=== PATIENT | male | born 1955 | race Caucasian/White ===

== ENCOUNTER 2022-06-05 09:49 | Inpatient (IN) ==
--- NOTE | 2022-05-12 10:15 | PAT Medication Instructions ---
Medication Instructions Date of Service May 12, 2022 Home Medications dabigatran etexilate 150 mg capsule (Pradaxa) 150 mg PO BID folic acid 1 mg tablet 1 mg PO QPM furosemide 20 mg tablet 20 mg PO QAM hydroxychloroquine 400 mg tablet 400 mg PO QPM losartan 100 mg tablet 100 mg PO QPM prednisone 5 mg tablet 5 mg PO QPM tamsulosin 0.4 mg capsule 0.4 mg PO QAM ASK your prescriber and surgeon dabigatran etexilate 150 mg capsule (Pradaxa) 150 mg PO BID hydroxychloroquine 400 mg tablet 400 mg PO QPM DO NOT take the morning of surgery furosemide 20 mg tablet 20 mg PO QAM Take morning of surgery With a small sip of water, OTHERWISE NOTHING TO EAT OR DRINK AFTER MIDNIGHT: tamsulosin 0.4 mg capsule 0.4 mg PO QAM Take evening before surgery folic acid 1 mg tablet 1 mg PO QPM losartan 100 mg tablet 100 mg PO QPM prednisone 5 mg tablet 5 mg PO QPM Other Notes If you have any questions please call us at [phone] or [phone] or [phone] or [phone]
--- NOTE | 2022-05-19 11:45 | Anesthesiology Consultation ---
Date of Service May 19, 2022 Assessment & Plan (1) Encounter for pre-operative examination: - awaiting upcoming PCP clearance 05/24/22 [facility]. Chart Review Chart Review: Pending: Refer to Additional Notes / Consult section and Patient seen in Pre Admission Testing Teaching & Discussion Pre-Anesthesia Teaching/Discussion Notes: Instructed NPO after midnight before surgery, except medications with 15 cc of water. Medication instructions provided according to the PAT guidelines. History Surgery Operation Date: 06/05/22 07:45 Proposed Procedures p L4-L5 Decompression and Fusion, Spinal Cord Monitoring - Armond Mosqurea DO Height/Weight Height: 5 ft 8 in Weight: 94.3 kg Allergies Allergy/AdvReac Type Severity Reaction Status Date / Time rosuvastatin [From Crestor] Allergy Mild Muscle Pain Verified 05/12/22 08:00 cephalexin [From Keflex] AdvReac Intermediate Diarrhea Verified 05/12/22 08:00 Medications Home Medications Medication Instructions Recorded Confirmed Last Taken dabigatran etexilate 150 mg 150 mg PO BID 05/12/22 05/12/22 Unknown capsule (Pradaxa) folic acid 1 mg tablet 1 mg PO QPM 05/12/22 05/12/22 Unknown furosemide 20 mg tablet 20 mg PO QAM 05/12/22 05/12/22 Unknown hydroxychloroquine 400 mg tablet 400 mg PO QPM 05/12/22 05/12/22 Unknown losartan 100 mg tablet 100 mg PO QPM 05/12/22 05/12/22 Unknown prednisone 5 mg tablet 5 mg PO QPM 05/12/22 05/12/22 Unknown tamsulosin 0.4 mg capsule 0.4 mg PO QAM 05/12/22 05/12/22 Unknown Past Medical History Medical History (Updated 05/19/22 @ 11:51 by Danae Bonilla PA-C) History of COVID-19 08/2021- fever, aches, no hospitalization, no current issues HTN (hypertension) controlled, stable per pt; white coat hypertension Hx of deep venous thrombosis x 5-- right and left calf, last one ~6 yrs ago; reason for pradaxa; had testing, no known cause Polyneuropathy Rheumatoid arthritis Witnessed apneic spells snoring and witnessed apneas Patient denies h/o stroke, seizures, heart attack, heart failure, DM, or blood transfusions. Exercise / Class Metabolic Activity II 4-5 Yardwork/Stairs/Walk up hill (denies chest discomfort or shortness of breath with 1 FOS) Past Family History Family History Other No family history of adverse response to anesthesia Past Surgical History Surgical History Hx of cholecystectomy Hx of left cataract extraction Hx of umbilical hernia repair 04/12/2022 Past Anesthesia History No Hx of Anesthesia Complications and No Family Hx of Anesthesia Complications History of PONV No Hx of PONV and No Hx of Motion Sickness Social History Smoking Status: Never smoker Do You Dip or Chew Tobacco: No Hx Alcohol Use: Yes Alcohol type: beer alcohol intake frequency: a few times a week Hx Substance Use: No substance use type: does not use Review of Systems Snoring and witnessed apneas, denies sleep study. Patient denies chest pain, shortness of breath, dyspnea on exertion, reflux, fever, chills, cough, wheezing, or palpitations. Physical Exam Vital Signs Vitals BP 148/80 P 62 TEMP 97.9 SP02 97% on RA RESP 18 Physical Full cervical extension range of motion without pain TMD 3.5 finger breadths Mallampati Score 2 Dentition: intact, denies chipped or loose teeth, caps/crowns, implants or bridges Lungs: normal respiratory effort. Clear throughout to auscultation, no adventitious breath sounds Cardiac: regular rate and rhythm, no murmurs noted Carotid arteries: negative bruit bilat Lab Results Anesthesia Preop Results Results Anesthesia Widget: WBC 6.24 K/ul (4.8-10.8) 05/19/22 Hgb 15.3 g/dl (14.0-18.0) 05/19/22 Hct 44.5 % (42.0-52.0) 05/19/22 Plt 202 K/uL (130-400) 05/19/22 Na 137 mmol/L (136-145) 05/19/22 K 4.0 mmol/L (3.5-5.1) 05/19/22 Cl 106 mmol/L (98-107) 05/19/22 CO2 24 mmol/L (21-32) 05/19/22 BUN 23 mg/dl (6-23) 05/19/22 Creat 1.16 mg/dl (0.6-1.4) 05/19/22 Glucose Level 80 mg/dl (70-99(Fasting)) 05/19/22 PT 12.3 Seconds (9.0-12.0) H 05/19/22 PTT 41.9 Seconds (21.0-31.0) H 05/19/22 INR 1.2 (0.9-1.1) H 05/19/22 Urine Color Yellow 05/19/22 Urine Appearance Clear (Clear) 05/19/22 Urine pH 5.0 (4.5-7.5) 05/19/22 Urine Specific [place] 1.018 (1.000-1.030) 05/19/22 Urine Protein Negative (Negative) 05/19/22 Urine Glucose (UA) Negative (Negative) 05/19/22 Urine Ketones Trace (Negative) H 05/19/22 Urine Blood Negative (Negative) 05/19/22 Urine Nitrite Negative (Negative) 05/19/22 Urine Bilirubin Negative (Negative) 05/19/22 Urine Urobilinogen Negative (Negative) 05/19/22 Urine Leukocyte Esterase 1+ (Negative) H 05/19/22 Urine WBC (Auto) 1-5 /hpf (0-5) 05/19/22 Urine RBC (Auto) 0-4 /hpf (0-4) 05/19/22 Urine Hyaline Casts (Auto) 1-5 /lpf (0-5) 05/19/22 Urine Epithelial Cells (Auto) 5-10 /lpf (0-5) H 05/19/22 Urine Bacteria (Auto) Negative (Negative) 05/19/22 Blood Type A Positive 05/19/22 Antibody Screen NEGATIVE 05/19/22 Testing Electrocardiogram Date: 05/19/22 Sinus bradycardia, rate 52 bpm Chest X-Ray Date: 05/19/22 No prior studies are available for comparison at the time of dictation. The cardiomediastinal silhouette is unremarkable. The lungs and pleural spaces are clear noting minimal bibasilar atelectasis. There is no pneumothorax. The bony thorax appears intact. Degenerative change is seen in the shoulders. Cholecys tectomy clips are noted in the right upper quadrant. IMPRESSION: No active disease in the chest. Stress Test Date: 05/18/21 Pharmacologic MPHR 85% Negative for inducible ischemia EF 50-54% Mild aortic valve regurgitation Mild mitral regurgitation Mild tricuspid regurgitation Cervical Spine Date: 05/19/22 x-ray The skeletal structures appear osteopenic. There is no radiographic evidence of fracture or subluxation on these lateral views. Vertebral body height and alignment are maintained. There is no bony subluxation on the flexion/extension views. Anterior osteophytes are seen throughout. The atlantodental articulation appears maintained noting productive degenerative change. The spinolaminar line is preserved. The spinous processes appear intact. There is severe disc space narrowing at C6-C7 and C7-T1. Moderate disc space narrowing is noted at C5-C6. Small posterior disc osteophyte complexes are noted in the lower cervical region. The prevertebral soft tissues are within normal limits. IMPRESSION: 1. No acute bony abnormality is seen involving the cervical spine on these lateral projections. 2. No bony subluxation is seen on the flexion/extension views. COVID-19 Risk Screen Screening Information COVID-19 Screen Date: 05/19/22 Exposure 21 Days Family/Household +COVID Last 21 Days: No Exposure 10 Days Any COVID Exposure Last 10 Days: No Symptoms Last 10 Days Experienced COVID Sx Last 10 Days: No + COVID 0-90 Days COVID + in Last 0-90 Days: No
[~2022-06-05 09:49] MED LIST: ACETAMINOPHEN 500 MG TAB PO SCH; CeleBREX 200 MG CAP PO SCH; DEXAMETHASONE SOD INJ 4 MG/ML VIAL ONE; GABAPENTIN 300 MG CAP PO SCH; LIDOCAINE 2% MPF LOCAL 5 ML VIAL ONE; LR 15ML/HR IV SCH; MIDAZOLAM HCL 1 MG/ML 2ML VIAL ONE; PROPOFOL IV EMULSION 10 MG/ML 20 ML VIAL IV ONE; ROCURONIUM BROMIDE 10 MG/ML 5 ML VIAL IV ONE; ceFAZolin 2000MG 2,000 MG/15 ML SYR IV SCH; fentaNYL citrate PF 100 MCG/2 ML VIAL ONE
[2022-06-05] MEDS ORDERED: LABETALOL HCL IV 5 MG/ML 20ML IV PRN (10:48)
[2022-06-05] MEDS ORDERED: ePHEDrine sulfate 50 MG/ML AMP IV PRN (10:48)
[2022-06-05] MEDS ORDERED: ATROPINE SULFATE 0.1 MG/ML 10ML SYR IV PRN (10:48)
[2022-06-05] MEDS ORDERED: PROMETHAZINE HCL 12.5 MG in SODIUM CHLORIDE 0.9% 50 ML IV PRN ×2 (10:48→16:31)
[2022-06-05] MEDS ORDERED: NALOXONE HCL 0.4 MG/1 ML VIAL/CARP IV PRN ×2 (10:48→16:31)
[2022-06-05] MEDS ORDERED: ONDANSETRON INJ 2 MG/ML 2 ML VIAL IV PRN ×2 (10:48→16:31)
[2022-06-05] MEDS ORDERED: FLUMAZENIL 0.1 MG/1 ML 10 ML VIAL IV PRN (10:48)
--- NOTE | 2022-06-05 12:25 | History & Physical Bridge Note ---
Date of Service June 05, 2022 History & Physical Bridge Note I have examined the patient, reviewed the History & Physical and in the interval since the performance of the History & Physical I have noted the following changes of clinical significance: no changes noted
--- NOTE | 2022-06-05 12:27 | History & Physical Report ---
Date of Service June 05, 2022 Assessment & Plan (1) Lumbar disc herniation with radiculopathy: Plan: L4-L5 decompression and fusion History of Present Illness Chief Complaint: Back and leg pain Primary Care Provider: NO PCP This is a 66-year-old male who presents with chronic persistent back and leg pain after failing course of nonoperative care is here for surgical intervention. Allergies Allergy/AdvReac Type Severity Reaction Status Date / Time rosuvastatin [From Crestor] Allergy Mild Muscle Pain Verified 05/12/22 08:00 cephalexin [From Keflex] AdvReac Intermediate Diarrhea Verified 05/12/22 08:00 Home Medications Medication Instructions Recorded Confirmed Type dabigatran etexilate 150 mg 150 mg PO BID 05/12/22 06/05/22 History capsule (Pradaxa) folic acid 1 mg tablet 1 mg PO QPM 05/12/22 06/05/22 History furosemide 20 mg tablet 20 mg PO QAM 05/12/22 06/05/22 History hydroxychloroquine 400 mg tablet 400 mg PO QPM 05/12/22 06/05/22 History losartan 100 mg tablet 100 mg PO QPM 05/12/22 06/05/22 History prednisone 5 mg tablet 5 mg PO QPM 05/12/22 06/05/22 History tamsulosin 0.4 mg capsule (Flomax) 0.4 mg PO QAM 05/12/22 06/05/22 History Past Med/Surg History Medical History (Updated 06/05/22 @ 12:26 by Armond Mosquera DO) History of COVID-19 08/2021- fever, aches, no hospitalization, no current issues HTN (hypertension) controlled, stable per pt; white coat hypertension Hx of deep venous thrombosis x 5-- right and left calf, last one ~6 yrs ago; reason for pradaxa; had testing, no known cause Polyneuropathy Rheumatoid arthritis Witnessed apneic spells snoring and witnessed apneas Surgical History Hx of cholecystectomy Hx of left cataract extraction Hx of umbilical hernia repair 04/12/2022 Family History Other No family history of adverse response to anesthesia Social History Smoking Status: Never smoker Second Hand Exposure: No; Do You Dip or Chew Tobacco: No; Tobacco Cessation Education Requested by Patient: No Hx Alcohol Use: Yes Alcohol type: beer Hx Substance Use: No Preferred Language: Sinhala Communication Ability: Effective Bottom Painter Required: No Beliefs That Will Affect Care: None Current Living Situation: Spouse Feels Safe at Home: Yes Safety Concerns: Feels Safe At This Time Assistive Devices: Glasses Physical Exam Physical Exam: Patient is alert and oriented Heart regular rhythm Lungs clear Results & Data Results & Data Vital Signs (Past 12 Hours) Vital Signs Temp Pulse Resp BP Pulse Ox O2 Del Method 06/05/22 10:25 36.5 C 56 L 20 168/87 H 97 Room Air
[2022-06-05] MEDS ORDERED: ceFAZolin 330 MG/ML 1 GM VIAL ONE (12:42)
[2022-06-05] MEDS ORDERED: BUPIVACAINE/EPINEPHRINE 0.25% 1:200,000 30 ML VIAL ONE (12:42)
[2022-06-05] MEDS ORDERED: ONDANSETRON INJ 2 MG/ML 2 ML VIAL ONE (13:41)
[2022-06-05] MEDS ORDERED: ePHEDrine sulfate 50 MG/ML SYR ONE (13:41)
[2022-06-05] MEDS ORDERED: FLOSEAL HEMOSTATIC MATRIX 10ML TOP ONE (14:16)
--- NOTE | 2022-06-05 14:20 | Operative Report ---
Post Operative Report Pre & Post Diagnosis Operation Date: 06/05/22 11:25 Pre-Op Diagnosis: Lumbar spinal stenosis with radiculopathy Post-Op Diagnosis: Same I identified the patient and participated in the time-out.: Yes Procedure Operation Date: 06/05/22 11:25 Actual Procedures #1 lumbar decompression bilaterally facetectomies and foraminotomies L3-L4 L4- L5. #2 posterior spinal fusion L4-L5. #3 placed posterior instrumentation L4- L5. #4 interbody fusion L4-L5. #5 placement of Spira 10 x 26 mm cage and L4- L5. #6 placement locally harvested morselized autograft in the posterior gutters. #7 placement of I factor bone of the talus in the interbody space and posterior lateral gutters. Surgeon Armond Mosquera, DO Wage Conciliator Savannah Nevarez Estimated Blood Loss 150 Findings See Below The patient is 5 foot 8 weighing over 94 kg with a BMI in excess of 31. Patient's body habitus did contribute to significant technical difficulty required deepest retractors longer instruments in order to perform his procedure. This at least 50% increased operative time. Specimens None Indications This is a 58-year-old male who presents above-mentioned diagnosis after failing course of nonoperative care is here for surgical invention. Description of Procedure Patient was met with identified informed consent obtained. Patient was then taken to the operative suite underwent intubation placed in a prone position on the [place] table top [place] frame. All bony prominences well-padded eyes inspected to ensure no external pressure placed on them. Patient was then prepped and draped normal sterile fashion. Sharp dissection with assistance of Bovie Cardizem performed down to and exposing the lamina transverse processes of L4 and L5. From caudal to cephalad fashion complete laminectomy of L4 partial laminectomy L3 was performed including bilateral facetectomies and foraminotomies addressing severe spinal stenosis particular on the right L4 foramen. Pedicle screws were then placed in L4 and L5 bilaterally with assistance of fluoroscopy and appropriate sized yuriy placed. By way of transforaminal approach and right complete discectomy was performed endplates curetted to subcortical bleeding bone and a 10 x 26 mm Spira cage with I factor tapped position. The rods were then locked in final position bilaterally. Transverse processes of L4 and L5 burred to subcortically bone. I factor bone of the test and locally harvested morselized autograft was placed in the posterior gutters. 15 round HIRAL drain inserted. The incision was then closed with 1 Vicryl the fascia 2-0 Vicryl subcutaneously and 4 Monocryl for final skin closure. Steri-Strips and sterile dressing placed. Patient awakened taken to PACU in stable condition. Please note spinal cord monitoring was utilized at the procedure no changes noted. Lastly Savannah Nevarez was present at the entire surgery and with the patient positioning complex portions of the surgery and final skin closure. I attest to the content of the Intraoperative Record and any orders documented therein. Any exceptions are noted below.
--- NOTE | 2022-06-05 14:25 | Fluoroscopy Report ---
FL lumbar spine 2-3V CLINICAL HISTORY: L4-L5 DECOMP/FUSION COMPARISON STUDY: None. FLUOROSCOPY TIME: 16 seconds FLUOROSCOPY IMAGES: 2 Ka,r: 14.5 mGy FINDINGS: Posterior decompression and fusion at L4-5 with pedicle screws and rods. The hardware appea rs intact. The disc spacers in place. IMPRESSION: Fluoroscopic assistance as above. ACT 112: Negative or not required by law. Electronically signed by: Ghulam Garcia M.D. 06/05/2022 2:24 PM
[2022-06-05] MEDS ORDERED: SUGAMMADEX SODIUM 200 MG/2 ML VIAL IV ONE (14:26)
[2022-06-05] MEDS: fentaNYL citrate PF 100 MCG/2 ML VIAL IV PRN ×4 (14:37→14:55)
[2022-06-05] MEDS: HYDROmorphone INJ 1 MG/ML SYRINGE IV PRN ×2 (15:00→15:05)
--- NOTE | 2022-06-05 15:28 | Anesthesiology Progress Note ---
Date of Service June 05, 2022 Anesthesia Post Procedure Vital Signs Vital Signs: Temp Pulse Pulse Resp BP Pulse Ox O2 Del Method 06/05/22 15:20 36.4 C L 59 L 15 138/76 96 Nasal Cannula 06/05/22 15:10 64 12 134/77 96 Nasal Cannula 06/05/22 15:00 58 L 12 142/83 H 98 Oxymask 06/05/22 14:50 69 12 157/83 H 98 Oxymask 06/05/22 14:40 67 16 145/82 H 100 Oxymask 06/05/22 14:34 36.0 C L 64 22 138/82 100 Oxymask 06/05/22 10:25 36.5 C 56 L 20 168/87 H 97 Room Air O2 Flow Rate 06/05/22 15:20 2 06/05/22 15:10 2 06/05/22 15:00 5 06/05/22 14:50 5 06/05/22 14:40 9 06/05/22 14:34 9 06/05/22 10:25 Pain Intensity Right Leg: Pain Intensity: 3 Back: Pain Intensity: 3 Transfer of Care Handoff Completed per policy Notes Mental Status: alert / awake / arousable Patient Amnestic to Procedure: Yes Nausea / Vomiting: adequately controlled Pain: adequately controlled Airway Patency, RR, SpO2: stable & adequate BP & HR: stable & adequate Hydration State: stable & adequate Anesthetic Complications: no major complications apparent
[2022-06-05] MEDS ORDERED: bisacodyL 10 MG SUPP PR PRN (16:31)
[2022-06-05] MEDS ORDERED: ACETAMINOPHEN 500 MG TAB PO PRN (16:31)
[2022-06-05] MEDS ORDERED: MAGNESIUM HYDROXIDE SUSP 30 ML UDC PO PRN (16:31)
[2022-06-05] MEDS ORDERED: DO NOT ADMINISTER PNEUMOCOCCAL VACCINE PRN (16:31)
[2022-06-05] MEDS ORDERED: oxyCODONE HCL IR 5 MG TAB (IMMEDIATE RELEASE) PO PRN (16:31)
[2022-06-05] MEDS ORDERED: FAMOTIDINE 20 MG TAB PO PRN (16:31)
[2022-06-05] MEDS ORDERED: LORazepam 0.5 MG TAB PO PRN (16:31)
[2022-06-05] MEDS ORDERED: ONDANSETRON 4 MG OD TAB PO PRN (16:31)
[2022-06-05] MEDS ORDERED: METOCLOPRAMIDE HCL INJ 5 MG/ML 2 ML VIAL IV PRN (16:31)
[2022-06-05] MEDS ORDERED: HYDROmorphone INJ 0.5 MG/0.5 ML SYR IV PRN (16:31)
[2022-06-05] MEDS ORDERED: HYDROmorphone INJ 1 MG/ML SYRINGE IV PRN (16:31)
[2022-06-05] MEDS ORDERED: diphenhydrAMINE Capsule 25 MG CAP PO PRN (16:31)
[2022-06-05] MEDS ORDERED: ALUMINUM/MAGNESIUM SUSP 30 ML UDC PO PRN (16:31)
[2022-06-05] MEDS ORDERED: DO NOT ADMINISTER FLU VACCINE PRN (16:31)
[2022-06-05] MEDS ORDERED: hydrOXYzine HCl 25 MG TAB PO PRN (16:31)
[2022-06-05] MEDS ORDERED: LORazepam 2 MG/1 ML VIAL IV PRN (16:31)
[2022-06-05] MEDS ORDERED: ACETAMINOPHEN 1,000 MG/100 ML VIAL IV PRN (16:31)
[2022-06-05] MEDS ORDERED: SOD PHOSPHATE/SOD BIPHOSPHATE ENEMA 132 ML BTL PR PRN (16:31)
--- NOTE | 2022-06-05 17:42 | Hospitalist Consultation ---
Date of Consultation June 05, 2022 Assessment & Plan (1) Lumbar disc herniation with radiculopathy: POD #0 - L4-L5 Decompression and Fusion - Pain control, PT/OT per primary service - Due to pt's history of recurrent DVT, would recommend resuming anticoagulation as soon as okay with primary team - encourage OOB as able. - Labs in AM - EBL 150 ml - Incentive spirometry (2) Rheumatoid arthritis: Resume prednisone once finishes course of dexamethasone Continue hydroxychloroquine Resume methotrexate and Orencia per discussions with rheumatology (3) Hx of deep venous thrombosis: (4) Chronic anticoagulation: (5) HTN (hypertension): BP currently acceptable - continue to monitor, resume home meds (6) Dyslipidemia: Plan Pt seen and reviewed with collaborating physician, Dr. Mathews. Plan of care discussed and as outlined above. Thank you for this consultation. We will continue to follow the patient with you. A member of the [facility] Hospitalist Team is available 02/10 via [employer]. Please don't hesitate to reach out with questions. Kathy Cadet PA-C Supervising Physician Co-Signing Physician Notes The patient tomorrow History of Present Illness Reason for Consultation: Post-operative Medical Management Requesting Physician: Dr. Armond Mosquera Attending Physician: Armond Mosquera, DO History of Present Illness This is a 66 y/o male with seronegative RA, recurrent DVT x 5, chronic AC on Pradaxa (apparently developed DVT on both warfarin and Xarelto per outpatient records), HTN, dyslipidemia, and polyneuropathy who underwent L4-L5 decompression and fusion today by Dr. Mosquera. We have been consulted to assist with post-operative medical management. Pt reports several years of lower back pain for which he tried multiple conservative options including aqua therapy, manager urgent care, and multiple injections. However, the pain progressed to the point of interfering with his daily activities so he decided to pursue surgical intervention. Currently, he is sitting OOB in chair and reports minimal pain when he is at rest. Had some difficulty transferring to the chair. Otherwise, he is feeling well - denies chest pain, palpitations, shortness of breath, nausea, vomiting, sore throat, dysphagia. Holly catheter was removed before pt came to the floor. Pt has a history of multiple DVTs of unknown cause so he is worried about getting back on the Pradaxa as soon as possible. Allergies Allergy/AdvReac Type Severity Reaction Status Date / Time rosuvastatin [From Crestor] Allergy Mild Muscle Pain Verified 05/12/22 08:00 cephalexin [From Keflex] AdvReac Intermediate Diarrhea Verified 05/12/22 08:00 Home Medications Medication Instructions Recorded Confirmed Type dabigatran etexilate 150 mg 150 mg PO BID 05/12/22 06/05/22 History capsule (Pradaxa) folic acid 1 mg tablet 1 mg PO QPM 05/12/22 06/05/22 History furosemide 20 mg tablet 20 mg PO QAM 05/12/22 06/05/22 History hydroxychloroquine 400 mg tablet 400 mg PO QPM 05/12/22 06/05/22 History losartan 100 mg tablet 100 mg PO QPM 05/12/22 06/05/22 History prednisone 5 mg tablet 5 mg PO QPM 05/12/22 06/05/22 History tamsulosin 0.4 mg capsule (Flomax) 0.4 mg PO QAM 05/12/22 06/05/22 History abatacept (with maltose) 250 mg See Rx Instructions .Route .COMPLEX 06/05/22 06/05/22 History intravenous solution (Orencia (with maltose)) methotrexate sodium 2.5 mg tablet 25 mg PO WK 06/05/22 06/05/22 History Patient History Medical History (Updated 06/05/22 @ 18:52 by Priyanka Cadet PA-C) Choledocholithiasis Chronic anticoagulation DDD (degenerative disc disease), lumbar Dyslipidemia History of COVID-19 08/2021- fever, aches, no hospitalization, no current issues HTN (hypertension) controlled, stable per pt; white coat hypertension Hx of deep venous thrombosis x 5-- right and left calf, last one ~6 yrs ago; reason for pradaxa; had testing, no known cause Polyneuropathy Rheumatoid arthritis Witnessed apneic spells snoring and witnessed apneas Surgical History History of ERCP Hx of cholecystectomy Hx of left cataract extraction Hx of umbilical hernia repair 04/12/2022 Family History Other Diabetes Heart disease No family history of adverse response to anesthesia Pulmonary embolism Stroke Social History Smoking Status: Never smoker Second Hand Exposure: No; Do You Dip or Chew Tobacco: No; Tobacco Cessation Education Requested by Patient: No Hx Alcohol Use: Yes Alcohol type: beer Hx Substance Use: No Preferred Language: Kittitian Communication Ability: Effective Progressive Care Nurse Required: No Beliefs That Will Affect Care: None Current Living Situation: Spouse Feels Safe at Home: Yes Safety Concerns: Feels Safe At This Time Assistive Devices: Glasses Review of Systems Review of Systems: All systems reviewed & are unremarkable except as noted in HPI & below Constitutional: no fever, no chills and no sweats Eyes: no diplopia Ear, Nose, Mouth, Throat: no sore throat and no dysphagia Respiratory: no cough and no dyspnea Cardiovascular: no chest pain and no palpitations Gastrointestinal: no abdominal pain, no nausea and no vomiting Musculoskeletal: as per Subjective / HPI Integumentary: no rash Neurologic: no dizziness and no headache(s) Psychiatric: no depression and no anxiety Physical Exam Constitutional: well developed and well nourished; no acute distress Eyes: + anicteric sclerae ENMT: external ear and nose normal, oropharynx normal Neck: trachea midline Respiratory: no respiratory distress and no labored breathing Auscultation: lungs clear to auscultation bilaterally; no rales, no rhonchi and no wheezes Cardiovascular: Rate/Rhythm: regular rate and regular rhythm Vessels: radial pulses present Extremities: no pedal edema Gastrointestinal (Abdomen): Inspection/Auscultation: normal bowel sounds; abd omen not distended Percussion/Palpation: abdomen soft Musculoskeletal: Head/Neck/Chest: normocephalic, head atraumatic and neck supple Skin: no jaundice Neurologic: moves all extremities; no focal motor deficits and not confused Psychiatric: A+Ox3, euthymic affect Results & Data Results & Data Vital Signs (Past 12 Hours) Vital Signs Temp Pulse Pulse Pulse Resp BP Pulse Ox 06/05/22 17:36 36.3 C L 60 16 128/75 96 06/05/22 16:43 36.4 C L 50 L 18 156/96 H 95 06/05/22 16:15 35.7 C L 51 L 16 159/91 H 98 06/05/22 15:54 36.3 C L 50 L 16 162/90 H 98 06/05/22 15:30 55 L 12 136/81 99 06/05/22 15:20 36.4 C L 59 L 15 138/76 96 06/05/22 15:10 64 12 134/77 96 06/05/22 15:00 58 L 12 142/83 H 98 06/05/22 14:50 69 12 157/83 H 98 06/05/22 14:40 67 16 145/82 H 100 06/05/22 14:34 36.0 C L 64 22 138/82 100 06/05/22 10:25 36.5 C 56 L 20 168/87 H 97 O2 Del Method O2 Flow Rate 06/05/22 17:36 Nasal Cannula 2 06/05/22 16:43 Nasal Cannula 2 06/05/22 16:15 Nasal Cannula 2 06/05/22 15:54 Nasal Cannula 2 06/05/22 15:30 Nasal Cannula 2 06/05/22 15:20 Nasal Cannula 2 06/05/22 15:10 Nasal Cannula 2 06/05/22 15:00 Oxymask 5 06/05/22 14:50 Oxymask 5 06/05/22 14:40 Oxymask 9 06/05/22 14:34 Oxymask 9 06/05/22 10:25 Room Air Laboratory Results 06/05/22 Unknown SARS-CoV-2, RNA, NAAT NEGATIVE Medications Administered Lactated Ringer's (Lr) 1,000 mls @ 100 mls/hr IV .Q10H DEBRA Stop: 07/05/22 16:30 Last Admin: 06/05/22 18:30 Dose: 100 mls/hr Documented By: [facility] Discontinued Medications Acetaminophen (Acetaminophen 500 Mg Tab) 1,000 mg PO PREOP DEBRA Stop: 06/05/22 18:00 Last Admin: 06/05/22 10:55 Dose: 1,000 mg Documented By: QUIRINO Bupivacaine HCl/Epinephrine Bitart (Bupivacaine/Epinephrine 0.25% 1:200,000 30 Ml Vial) Confirm Administered Dose 30 ml .ROUTE .STK-MED ONE Stop: 06/05/22 12:43 Last Admin: 06/05/22 13:22 Dose: 20 ml Documented By: [facility] Cefazolin Sodium (Cefazolin 330 Mg/Ml 1 Gm Vial) Confirm Administered Dose 990 mg .ROUTE .STK-MED ONE Stop: 06/05/22 12:43 Last Admin: 06/05/22 14:12 Dose: 950 mg Documented By: LAKEISHA Celecoxib (Celebrex 200 Mg Cap) 200 mg PO PREOP DEBRA Stop: 06/05/22 18:00 Last Admin: 06/05/22 10:55 Dose: 200 mg Documented By: QUIRINO Fentanyl Citrate (Fentanyl Citrate Pf 100 Mcg/2 Ml Vial) 25 mcg IV Q5M PRN PRN Reason: PACU Use Only-Pain Stop: 06/05/22 18:48 Last Admin: 06/05/22 14:55 Dose: 25 mcg Documented By: Admin: 06/05/22 14:50 Dose: 25 mcg Documented By: Admin: 06/05/22 14:45 Dose: 25 mcg Documented By: Admin: 06/05/22 14:37 Dose: 25 mcg Documented By: DAYSI Gabapentin (Gabapentin 300 Mg Cap) 300 mg PO PREOP DEBRA Stop: 06/05/22 18:00 Last Admin: 06/05/22 10:55 Dose: 300 mg Documented By: QUIRINO Hydromorphone HCl (Hydromorphone Inj 1 Mg/Ml Syringe) 0.25 mg IV Q5M PRN PRN Reason: PACU Use Only-Pain Stop: 06/05/22 18:48 Last Admin: 06/05/22 15:05 Dose: 0.25 mg Documented By: Admin: 06/05/22 15:00 Dose: 0.25 mg Documented By: DC Cefazolin Sodium (Ancef 2000mg) 2,000 mg in 15 mls @ 3.75 mls/min IV PREOP DEBRA; Protocol Stop: 06/05/22 18:00 Last Admin: 06/05/22 12:53 Dose: 3.75 mls/min Documented By: [id number] Lactated Ringer's (Lr) 1,000 mls @ 15 mls/hr IV .Q24H DEBRA Stop: 06/05/22 18:00 Last Infusion: 06/05/22 12:53 Dose: 0 mls/hr Documented By: [facility] Admin: 06/05/22 10:38 Dose: 15 mls/hr Documented By: QUIRINO Miscellaneous ( Floseal Hemostatic Matrix 10ml) 20 ml TOP ONCE ONE Stop: 06/05/22 14:17 Last Admin: 06/05/22 14:18 Dose: 15 ml Documented By: LAKEISHA
[2022-06-05] MEDS: LACTATED RINGER'S 1,000 ML IV SCH (18:30)
[2022-06-05] MEDS: HYDROXYCHLOROQUINE SULFATE 200 MG TAB PO SCH (19:51)
[2022-06-05] MEDS: LOSARTAN POTASSIUM 50 MG TAB PO SCH (19:51)
[2022-06-05] MEDS: DOCUSATE SODIUM/SENNA 50/8.6MG TAB PO SCH (19:51)
[2022-06-05] MEDS: ceFAZolin 2000MG 2,000 MG/15 ML SYR IV SCH (19:52)
[2022-06-05] MEDS: FOLIC ACID 1 MG TAB PO SCH (19:52)
[2022-06-06] MEDS: POLYETHYLENE (MIRALAX) 17 GM PACK PO SCH ×3 (05:26→17:53)
[2022-06-06] MEDS: ceFAZolin 2000MG 2,000 MG/15 ML SYR IV SCH (05:26)
[2022-06-06 07:42] LABS: Basophils # (auto) 0.01 K/uL (0-0.2); Basophils % (auto) 0.1 %; Eosinophils # (auto) 0.02 K/uL (0-0.50); Eosinophils % (auto) 0.2 %; Hematocrit (blood only) 38.8 % (42.0-52.0); Hemoglobin 13.1 g/dl (14.0-18.0); Immature Granulocytes # (auto) 0.04 K/uL (0.01-0.20); Immature Granulocytes % (auto) 0.4 %; Lymphocytes % (auto) 12.2 %; Mean Corpuscular Hemoglobin 31.3 pg (25.0-34.0); Mean Corpuscular Hgb Conc 33.8 g/dL (32.0-36.0); Mean Corpuscular Volume 92.8 fL (80.0-100.0); Mean Platelet Volume 10.3 fL (9.4-12.4); Monocytes # (auto) 0.72 K/uL (0.11-0.59); Monocytes % (auto) 7.3 %; Neutrophils # (auto) 7.85 K/uL (1.40-6.50); Neutrophils % (auto) 79.8 %; Platelet Count 172 K/uL (130-400); RDW Coefficient of Variation 12.3 % (11.5-14.5); RDW Standard Deviation 42.4 fL (36.4-46.3); Red Blood Count 4.18 M/uL (4.70-6.10); White Blood Count 9.84 K/ul (4.8-10.8)
[2022-06-06] MEDS: LACTATED RINGER'S 1,000 ML IV SCH (07:42)
[2022-06-06] MEDS: TAMSULOSIN HCL 0.4 MG CAP PO SCH (08:04)
[2022-06-06] MEDS: FUROSEMIDE 20 MG TAB PO SCH (08:04)
[2022-06-06] MEDS: dexAMETHasone 6 MG in SYRINGE 0 ML IV SCH (08:04)
[2022-06-06 08:19] LABS: BUN Creatinine Ratio 16.1 (10-20); Calcium 8.2 mg/dl (8.6-10.3); Creatinine Clr Calc Pharmacy 84.8 ml/min; Est GFR (African American) 97.4 ml/min; Est GFR (Non-African American) 84.1 ml/min; Potassium 4.2 mmol/L (3.5-5.1)
[2022-06-06] MEDS: traMADol HCL 50 MG TABLET PO PRN ×2 (09:37→20:02)
--- NOTE | 2022-06-06 09:43 | Orthopedic Progress Note ---
Date of Service June 06, 2022 Assessment & Plan (1) Lumbar disc herniation with radiculopathy: Plan: This time continue physical therapy monitor his HIRAL operatively discharge home in next day or so. Admission and Anticipated Discharge Date Admission Date: June 05, 2022 Subjective Patient's back pain is controlled leg pain markedly improved Physical Exam Physical Exam: Patient is in the chair at the bedside. Skin strength testing. Appears comfortable. Results & Data Vital Signs (Past 12 Hours) Vital Signs Temp Pulse Resp BP Pulse Ox O2 Del Method 06/06/22 07:35 36.4 C L 60 16 131/78 95 Room Air 06/06/22 02:55 36.3 C L 62 16 126/74 95 Room Air 06/05/22 22:02 36.4 C L 81 16 129/80 92 Room Air
--- NOTE | 2022-06-06 16:31 | Hospitalist Progress Note ---
Date of Service June 06, 2022 Assessment & Plan (1) Lumbar disc herniation with radiculopathy: Plan: S/P lumbar decompression, fusion surgery by Dr. Mosquera on 05/26/22 Postoperative blood loss anemia Pain control, activity, DVT prophylaxis per primary team Continue incentive spirometer No indication for blood transfusion Bowel regimen to prevent Constipation Continue PT OT Continue wound care (2) Rheumatoid arthritis: Plan: Resume prednisone once off IV dexamethasone Continue hydroxychloroquine Continue methotrexate and Orencia (3) Hx of deep venous thrombosis: Plan: Resume Pradaxa once cleared by orthopedic surgery (4) Chronic anticoagulation: (5) HTN (hypertension): Plan: Continue home medications Monitor (6) Dyslipidemia: Plan DVT Px: Disposition As per Primary Team Admission and Anticipated Discharge Date Admission Date: June 05, 2022 Subjective Patient is seen and examined at bedside Back pain at surgical site is controlled No BM today Denies chest pain, dyspnea, dizziness, nausea Family at bedside No other complaints Review of Systems Review of Systems: All systems reviewed & are unremarkable except as noted in Subjective Physical Exam Physical Exam: Physical Exam: Vitals signs as noted above General Appearance:Moderately built and nourished, no apparent distress Head: normocephalic, Atraumatic Eyes: normal inspection, EOMI Neck: supple, Trachea midline Respiratory/Chest: Normal breath sounds, CTA, No accessory muscle use Cardiovascular: S1, S2, No murmur Abdomen/GI:Soft, Non tender, Bowel sounds present Back:+Surgical site in dressing Extremities/Musculoskeletal:normal inspection, Chronic pedal edema Neurologic/Psych:AAOX3, grossly no focal neurological deficits Skin: normal color, warm Results & Data Results & Data Vital Signs (Past 12 Hours) Vital Signs Temp Pulse Pulse Resp BP BP Pulse Ox 06/06/22 15:54 36.7 C 67 18 118/70 94 06/06/22 11:20 37.2 C 71 16 131/78 95 06/06/22 07:35 36.4 C L 60 16 131/78 95 O2 Del Method 06/06/22 15:54 Room Air 06/06/22 11:20 Room Air 06/06/22 07:35 Room Air Laboratory Results Short CBC 06/06/22 Range/Units 07:20 WBC 9.84 (4.8-10.8) K/ul Hgb 13.1 L (14.0-18.0) g/dl Hct 38.8 L (42.0-52.0) % Plt Count 172 (130-400) K/uL BMP 06/06/22 07:20 Sodium 139 Potassium 4.2 Chloride 107 Carbon Dioxide 27 BUN 15 Creatinine 0.93 Glucose 134 H Calcium 8.2 L
[2022-06-06] MEDS: FOLIC ACID 1 MG TAB PO SCH (20:02)
[2022-06-06] MEDS: DOCUSATE SODIUM/SENNA 50/8.6MG TAB PO SCH (20:03)
[2022-06-06] MEDS: LOSARTAN POTASSIUM 50 MG TAB PO SCH (20:03)
[2022-06-06] MEDS: HYDROXYCHLOROQUINE SULFATE 200 MG TAB PO SCH (20:03)
[2022-06-07] MEDS: POLYETHYLENE (MIRALAX) 17 GM PACK PO SCH ×2 (00:45→05:50)
[2022-06-07] MEDS: traMADol HCL 50 MG TABLET PO PRN ×2 (06:25→12:13)
[2022-06-07 08:29] LABS: Hematocrit (blood only) 40.2 % (42.0-52.0); Hemoglobin 13.7 g/dl (14.0-18.0); Mean Corpuscular Hemoglobin 31.1 pg (25.0-34.0); Mean Corpuscular Hgb Conc 34.1 g/dL (32.0-36.0); Mean Corpuscular Volume 91.2 fL (80.0-100.0); Mean Platelet Volume 10.8 fL (9.4-12.4); Platelet Count 188 K/uL (130-400); RDW Coefficient of Variation 12.3 % (11.5-14.5); RDW Standard Deviation 41.1 fL (36.4-46.3); Red Blood Count 4.41 M/uL (4.70-6.10); White Blood Count 10.42 K/ul (4.8-10.8)
[2022-06-07] MEDS: FUROSEMIDE 20 MG TAB PO SCH (08:46)
[2022-06-07] MEDS: TAMSULOSIN HCL 0.4 MG CAP PO SCH (08:46)
[2022-06-07] MEDS: dexAMETHasone 6 MG in SYRINGE 0 ML IV SCH (08:47)
[2022-06-07 09:18] LABS: BUN Creatinine Ratio 15.3 (10-20); Calcium 8.5 mg/dl (8.6-10.3); Creatinine Clr Calc Pharmacy 71.1 ml/min; Est GFR (African American) 78.7 ml/min; Est GFR (Non-African American) 67.9 ml/min; Magnesium 1.8 mg/dl (1.7-2.4); Potassium 4.2 mmol/L (3.5-5.1)
--- NOTE | 2022-06-07 10:51 | Discharge Summary ---
Date of Service June 07, 2022 Admission HPI Per Admitting Provider This is a 66-year-old male who presents with chronic persistent back and leg pain after failing course of nonoperative care is here for surgical intervention. Principal Diagnosis Lumbar spinal stenosis with radiculopathy Discharge Data Allergies Allergy/AdvReac Type Severity Reaction Status Date / Time rosuvastatin [From Crestor] Allergy Mild Muscle Pain Verified 05/12/22 08:00 cephalexin [From Keflex] AdvReac Intermediate Diarrhea Verified 05/12/22 08:00 Consultations 06/05/22 16:31 Consult Hospitalist Routine Procedures Performed Operation Date: 06/05/22 11:25 Actual Procedures p L4-L5 Decompression and Fusion, Spinal Cord Monitoring(Not Applicable) - Armond Mosquera DO Ordered Studies 06/05/22 [place] lumbar spine 2-3V Routine Hospital Course (1) Lumbar disc herniation with radiculopathy: Patient underwent lumbar decompression and fusion tolerated so was taken to orthopedic floor postoperatively postop day #1 he was up and ambulating progress postop day #2. Leg pain markedly improved. Excellent strength testing. HIRAL drain decreasing probably. Socially discharged home. Discharge orders instructions found in chart for further review. Total Time Total Time Spent Total Time Spent (In Minutes): 20 minutes Discharge Plan Discharge Items Patient Disposition: Home - Self-Care Reason For Visit: Spinal Stenosis, Lumbar Region without Neurogenic Discharge Diagnosis: Lumbar spinal stenosis with neurogenic claudication and radiculopathy Activity: As commented below Non-emergency contact: Primary Care Provider Call non-emergency contact if: you have any medication questions Follow-up/Referrals: PCP,NO [Primary Care Provider] - Diet: Regular Addtl Attending Provider Instructions: ACTIVITY RECOMMENDATIONS: SELF CARE INSTRUCTIONS AFTER THORACIC/LUMBAR FUSIONS 1. You may walk to your tolerance. It is good exercise for your legs and back. Expect some back and intermittent leg aches and pains. 2. You may perform "counter-top" level activities (make a sandwich, marcin with a project, etc.). 3. No bending or lifting of more than 10 pounds or back twisting of any nature (roll like a log when turning in bed). 4. You may ride in a car for 20-30 minutes at a time. No driving until after your first visit with your doctor. 5. Frequent changes of position and restricting sitting to 30 minutes at a time will help limit the amount of back spasms and stiffness you may experience. 6. You may discontinue the use of ambulatory aids (cane, crutches, etc.) once your strength and confidence allow. 7. You may general handling supervisor the shower and let water strike your incision when you arrive home at least once daily. Do not take a tub bath, sit in a hot tub or go into a swimming pool until after your first recheck in the office. SPECIAL CARE INSTRUCTIONS: VERY IMPORTANT TO READ AND REVIEW A. Your surgical incision has been closed with a cosmetic suture under the skin that will dissolve in about 6 weeks. In 14 days, you can use a pair of clean scissors and cut the suture that is left outside of the skin at the ends of your incision. 1. The small skin tapes can be removed 7 days after surgery if they have not fallen off by that point. 2. You may keep the wound open to air as much as possible to promote healing after post-op day number 5 unless told otherwise by your doctor. 3. If you think the wound looks like it is becoming infected (redness or worsening drainage) and/or you are experiencing fever, chill or worsening back pain and muscle spasms, contact the office so that we may evaluate you as soon as possible. B. Complications are uncommon, but please contact us if you have any signs or symptoms of: 1. wound infection (fever higher than 102.5 degrees F, redness, separation of wound, drainage, or increasing pain from the incision) 2. blood clots in legs (pain, swelling, redness and warmth in legs) 3. urinary tract infection (fever higher than 102.5 degrees F, burning upon urination or increased frequency of urination) 4. nerve problems (inability to walk on your toes or heels, numbness, loss of bowel or bladder control) 5. any other symptoms that concern you C. Please call the office at if you have any concerns or questions about your operation or recovery. D. No smoking! Smoking drastically decreases the chance of a solid fusion. E. Do not take any anti-inflammatory medications (Indocin, Advil, Motrin, Aspirin, Naprosyn, etc.) as these may inhibit the chance of a solid fusion. Tylenol is okay to take for pain. MANAGING PAIN AFTER SPINAL SURGERY 1. Narcotic medication is intended for short-term use and will be provided for surgical pain. Surgical pain usually lasts for a period of 4-6 weeks. Narcotic medication includes Percocet, Vicodin, Darvocet, Tylenol #3 or Lortab. 2. Longer-term pain is more appropriately treated with non-narcotic medication such as Tylenol ES. 3. Muscle spasm is not appropriately treated with narcotics. Muscle relaxers such as Soma, Flexeril or Skelaxin can be used along with Tylenol ES. 4. Remember that we all live with some "aches and pains". This is not unusual or uncommon after an injury or as we get older. a. Back pain is expected and may include muscle spasms for 4 to 6 weeks after surgery. The pain should gradually improve. If the pain worsens for no apparent reason, please contact the office. b. Intermittent leg pain may also be experienced and should not be concerned about unless it worsens for no apparent reason. If so, please contact the office. 5. We will provide appropriate medication within the normal guidelines of their prescribed use. We will also be very cautious and aware of potential abuse and extended duration of patients' medication needs. a. Pain medications are for your comfort and to assist with sleep and rest so that the tissue can heal. They are not provided in order to return to normal activity and should not be used through the day. To do so or worsening pain at night can result from ongoing tissue damage and development of tolerance to the prescribed medicine. 6. Please allow 2-3 days to process refills. Prescriptions will not be mailed but must be picked up at the office. FOLLOW UP VISIT: Keep your scheduled follow-up appointment. Any questions, please call the office at . Pending Studies at Discharge: No Stand-Alone Forms: [facility], Smoking Cessation Medications and DC Order Prescriptions: New tramadol 50 mg tablet 50 mg PO Q6H PRN (Reason: pain, moderate) Qty: 30 0RF oxycodone-acetaminophen [Percocet] 10-325 mg tablet 1 tab PO Q8H PRN (Reason: pain) Qty: 20 0RF Continued prednisone 5 mg Tablet 5 mg PO QPM tamsulosin [Flomax] 0.4 mg Capsule 0.4 mg PO QAM folic acid 1 mg Tablet 1 mg PO QPM furosemide 20 mg Tablet 20 mg PO QAM losartan 100 mg Tablet 100 mg PO QPM dabigatran etexilate [Pradaxa] 150 mg Capsule 150 mg PO BID Rx Instructions: WILL STOP 1 WEEK PRIOR hydroxychloroquine 400 mg Tablet 400 mg PO QPM methotrexate sodium 2.5 mg tablet 25 mg PO WK Rx Instructions: 5 tab in AM and 5 tab in PM on Sundays Orencia (with maltose) 250 mg Recon Soln See Rx Instructions .ROUTE .COMPLEX Rx Instructions: 750 mg in 100 ml IV monthly Discharge Orders: Discharge Order (Routine); Ordered 06/07/22 Ordered By: Armond Mosquera Admission Data Admit Date/Time: 06/05/22 14:30 Attending Provider: Armond Mosquera Admit Provider: Armond Mosquera Primary Care Provider: PCP,NO Other Providers: Nhi Gonzalez ; Luc Loomis
--- NOTE | 2022-06-07 13:18 | Hospitalist Progress Note ---
Date of Service June 07, 2022 Assessment & Plan (1) Lumbar disc herniation with radiculopathy: Plan: S/P lumbar decompression, fusion surgery by Dr. Mosquera on 05/26/22 Postoperative blood loss anemia Pain control, activity, DVT prophylaxis per primary team Continue incentive spirometer No indication for blood transfusion Bowel regimen to prevent Constipation Continue PT OT Advised to follow-up with PCP upon discharge (2) Rheumatoid arthritis: Plan: PO prednisone on hold while on IV dexamethasone Continue hydroxychloroquine Continue methotrexate and Orencia Can resume prednisone upon discharge (3) Hx of deep venous thrombosis: Plan: Resume Pradaxa once cleared by orthopedic surgery (4) Chronic anticoagulation: (5) HTN (hypertension): Plan: Continue home medications Monitor (6) Dyslipidemia: Plan DVT Px: Disposition As per Primary Team Admission and Anticipated Discharge Date Admission Date: June 05, 2022 Subjective Patient is seen and examined at bedside States feeling well today Offers no new complaints Had BM today No significant pain at surgical site Denies chest pain, dyspnea, dizziness, nausea Family at bedside Review of Systems Review of Systems: All systems reviewed & are unremarkable except as noted in Subjective Physical Exam Physical Exam: Physical Exam: Vitals signs as noted above General Appearance:Moderately built and nourished, no apparent distress Head: normocephalic, Atraumatic Eyes: normal inspection, EOMI Neck: supple, Trachea midline Respiratory/Chest: Normal breath sounds, CTA, No accessory muscle use Cardiovascular: S1, S2, No murmur Abdomen/GI:Soft, Non tender, Bowel sounds present Back:+Surgical site in dressing Extremities/Musculoskeletal:normal inspection, Chronic pedal edema Neurologic/Psych:AAOX3, grossly no focal neurological deficits Skin: normal color, warm Results & Data Results & Data Vital Signs (Past 12 Hours) Vital Signs Temp Pulse Pulse Resp BP Pulse Ox O2 Del Method 06/07/22 11:53 36.7 C 67 65 16 117/74 95 06/07/22 07:17 36.7 C 65 16 117/74 95 Room Air Laboratory Results Short CBC 06/07/22 Range/Units 07:28 WBC 10.42 (4.8-10.8) K/ul Hgb 13.7 L (14.0-18.0) g/dl Hct 40.2 L (42.0-52.0) % Plt Count 188 (130-400) K/uL BMP 06/07/22 07:28 Sodium 136 Potassium 4.2 Chloride 105 Carbon Dioxide 26 BUN 17 Creatinine 1.11 Glucose 117 H Calcium 8.5 L
== END 2022-06-07 12:20 | disposition home or self-care (01) | DRG 454 ==
LOC: ASU 09:49 → 3N 14:30